=== PATIENT | male | born 2000 | race Caucasian/White ===

== ENCOUNTER 2020-10-01 16:54 | Emergency (ER) | payer MEDICAID ==
[~2020-10-01] VITALS: Ht 175.3 cm; Wt 120.0 kg
[2020-10-01] MEDS ORDERED: NITROGLYCERIN 0.4MG TABLET SL SL PRN (18:15)
[2020-10-01] MEDS ORDERED: SODIUM CHLORIDE 0.9% 1,000 ML IV ONE (18:15)
[2020-10-01] MEDS ORDERED: MAGNESIUM/ALUMINUM HYDROXIDE/SIMETHICONE 30ML UDC PO ONE (18:15)
[2020-10-01] MEDS ORDERED: ASPIRIN 81MG TABLET PO ONE (18:15)
[2020-10-01 18:29] LABS: BASOPHILS % 0.3 % (0.0-2.0); EOSINOPHILS % 0.3 % (0.0-5.0); HEMATOCRIT. 46.4 % (42.0-52.0); HEMOGLOBIN. 15.8 g/dL (14.0-18.0); LYMPHOCYTES % 14.2 % (20.0-50.0); MEAN CORPUSCULAR HEMOGLOBIN 28.9 pg (28.0-32.0); MEAN PLATELET VOLUME 8.9 fl (7.4-10.4); MONOCYTES % 11.1 % (2.0-8.0); NEUTROPHILS % 74.1 % (40.0-76.0); PLATELET 223 x1000/uL (130-400); RED BLOOD CELL COUNT 5.46 mill/uL (4.7-6.1); RED CELL DISTRIBUTION WIDTH 14.3 % (11.6-14.6)
[2020-10-01 18:31] LABS: CHLORIDE 101 mEq/L (98-107)
[2020-10-01 18:36] LABS: D-DIMER 0.93 mg/L FEU (<0.50); PARTIAL THROMBOPLASTIN TIME 28.6 sec (23.4-31.0); PROTHROMBIN TIME 10.9 sec (9.6-11.0)
[2020-10-01] MEDS ORDERED: IOHEXOL-350 100 ML BOTTLE ONE (19:56)
[2020-10-01] MEDS ORDERED: FAMOTIDINE 20MG TABLET PO ONE (20:00)
[2020-10-01] MEDS ORDERED: FAMO-135 PO (20:54)
[2020-10-02] VITALS: BP 144/87
== END 2020-10-02 | disposition home or self-care (01) ==
LOC: ER 16:54
DX: R07.89 Other chest pain (principal); R10.13 Epigastric pain; R53.1 Weakness
CPT/HCPCS: 36415; 71045; 71275; 74176; 78582; 80053; 83690; 83880; 84484; 85025; 85379; 85610; 85730; 93005; 93970; 96360; 96361; 99285; A9540; A9558; J7030; Q9967; Z7610